=== PATIENT | female | born 1985 | race Two or more races ===

== ENCOUNTER 2017-11-30 15:55 | Inpatient (IN) | payer MEDICARE, OTHER ==
[~2017-11-30] VITALS: Ht 160 cm; Wt 47.6 kg
--- NOTE | 2017-11-30 16:22 | NUR ---
PT ASSISTED FROM WR TO ED BED 11 NOW. PT WAS [facility] FROM [facility] FOR NON TRAUMATIC BILATERAL FOOT PAIN R>L X 2 DAYS. WORSE WHEN TOUCHED OR WITH MOVEMENTS. ASSISTED TO BED. WILL CONT TO MONITOR
[2017-11-30] MEDS ORDERED: ONDANSETRON HCL/PF 4 MG/2 ML VIAL IV ONE (17:00)
[2017-11-30] MEDS ORDERED: CEFTRIAXONE 1 G VIAL IM ONE (17:00)
[2017-11-30] MEDS ORDERED: MORPHINE SULFATE INJ 4 MG/ML DISP.SYRIN IV ONE (17:00)
[2017-11-30] MEDS ORDERED: ONDANSETRON HCL/PF 4 MG/2 ML VIAL ONE (17:21)
[2017-11-30] MEDS ORDERED: MORPHINE SULFATE INJ 4 MG/ML DISP.SYRIN ONE (17:21)
--- NOTE | 2017-11-30 17:30 | NUR ---
MEDICATED FOR PAIN PER OLIVIA, NATURAL RESOURCES SPECIALIST ORDER, PT WEI WELL.
[2017-11-30 17:31] LABS: BASOPHILS # (AUTO) 0.6 /CMM (0.0-0.2); BASOPHILS % (AUTO) 4.9 % (0.0-2.0); CALCIUM, SERUM 9.7 mg/dL (8.5-10.1); CREATININE 3.8 mg/dL (0.6-1.3); EOSINOPHILS % (AUTO) 1.1 % (0.0-6.0); HEMATOCRIT 39 % (33-45); HEMOGLOBIN 12.7 g/dL (11.5-14.8); LYMPHOCYTES # (AUTO) 0.6 /CMM (0.8-4.8); LYMPHOCYTES % (AUTO) 4.8 % (20.0-44.0); MEAN CORPUSCULAR HEMOGLOBIN 31 PG (26.0-33.0); MEAN CORPUSCULAR HGB CONC 33 g/dl (31.0-36.0); MEAN CORPUSCULAR VOLUME 95 fL (82-100); MONOCYTES % (AUTO) 8.5 % (2.0-12.0); NEUTROPHILS # (AUTO) 9.9 /CMM (1.8-8.9); NEUTROPHILS % (AUTO) 80.7 % (43.0-81.0); PLATELET COUNT (AUTO) 113 /CMM (150-450); POTASSIUM 4.8 mmol/L (3.5-5.1); RED BLOOD CELL COUNT(AUTO) 4.09 MIL/uL (4.0-5.2); WHITE BLOOD COUNT (AUTO) 12.2 K/uL (4.3-11.0)
[2017-11-30 17:43] LABS: ALBUMIN 3.8 g/dL (3.4-5.0); BILIRUBIN,DIRECT 0.2 mg/dL (0.0-0.2); BILIRUBIN,TOTAL 1.2 mg/dL (0.2-1.0); TOTAL PROTEIN, SERUM 7.4 g/dL (6.4-8.2)
[2017-11-30] MEDS ORDERED: ACETAMINOPHEN 325 MG TABLET PO ONE (18:30)
--- NOTE | 2017-11-30 18:52 | NUR ---
CALLED [facility] OBI WOLFE
[2017-11-30] MEDS ORDERED: ACETAMINOPHEN ES 500 MG TABLET ONE (19:10)
[2017-11-30] MEDS ORDERED: SEVE800T8 PO (19:14)
[2017-11-30] MEDS ORDERED: NIFE30TA2 PO (19:14)
[2017-11-30] MEDS ORDERED: LABE300T2 PO (19:14)
[2017-11-30] MEDS ORDERED: CLON0.2T PO (19:14)
[2017-11-30] MEDS ORDERED: CEFTRIAXONE 1 G in IV D5W 50 ML IV ONE (19:30)
[2017-11-30] MEDS ORDERED: IV NS 0.9% 1,000 ML IV PRN (19:48)
[2017-11-30] MEDS ORDERED: MAG HYDROX/AL HYDROX/SIMETH 30 ML UDC PO PRN (20:00)
[2017-11-30] MEDS ORDERED: Z GUARD REMEDY 2 OZ OINT TP PRN (20:00)
[2017-11-30] MEDS ORDERED: MAGNESIUM HYDROXIDE 30 ML UDC PO PRN (20:00)
[2017-11-30] MEDS ORDERED: ONDANSETRON HCL/PF - ER 4 MG/2 ML VIAL IV ONE (20:30)
[2017-11-30] MEDS ORDERED: CLINDAMYCIN IV RTU IN D5W 600 MG/50 ML PIGGYBACK IV SCH (21:00)
[2017-11-30] MEDS ORDERED: CLINDAMYCIN IV RTU IN D5W 900 MG/50 ML PIGGYBACK IV SCH (21:00)
[2017-11-30 21:30] VITALS: BP 142/94
--- NOTE | 2017-11-30 21:30 | NUR ---
TERESA RN NOTE PT RECEIVED AWAKE AND ALERT X4. ON ROOM AIR AND SATURATING WELL. BREATHING EVEN AND UNLABORED. NOTED WITH SLIGHT WEAKNESS AND PAIN TO BILATERAL LEGS. PT UNABLE TO AMBULATE TO BED AND TRANSFERRED SAFELY VIA GURNEY TO BED. NO NAUSEA OR VOMIT NOTED AT THIS TIME. LEFT FOREARM #20 CLEAN, DRY AND FLUSHING WELL. CAROLYN FISTULA NOTED WITH POSITIVE THRILL AND BRUIT PRESENT. NO BP OR BLOOD DRAW TO RIGHT ARM PRECAUTIONS. RCW PERMACATH CLEAN AND IN PLACE. CALL LIGHT WITHIN REACH. WILL MONITOR.
[2017-12-01] VITALS: BP 140/99
[2017-12-01] MEDS ORDERED: CLINDAMYCIN 900 MG/6 ML VIAL ONE (00:05)
[2017-12-01] MEDS: [UNRECOGNIZED DRUG - OTHER] IV SCH ×8 (00:08→20:37)
[2017-12-01] MEDS: D5W IV SCH ×8 (00:08→20:37)
[2017-12-01 04:00] VITALS: BP 136/94
[2017-12-01] MEDS ORDERED: CEFAZOLIN 1 GM ONE (04:54)
[2017-12-01] MEDS ORDERED: CEFAZOLIN 1 GM in IV NS 0.9% 50 ML IV SCH (05:00)
[2017-12-01] MEDS: CEFAZOLIN 1 GM in IV D5W 50 ML IV SCH ×3 (05:39→20:55)
[2017-12-01 06:18] LABS: BASOPHILS % (AUTO) 0.4 % (0.0-2.0); EOSINOPHILS % (AUTO) 3.6 % (0.0-6.0); HEMATOCRIT 39 % (33-45); HEMOGLOBIN 12.2 g/dL (11.5-14.8); LYMPHOCYTES # (AUTO) 0.5 /CMM (0.8-4.8); LYMPHOCYTES % (AUTO) 7.1 % (20.0-44.0); MEAN CORPUSCULAR HEMOGLOBIN 31 PG (26.0-33.0); MEAN CORPUSCULAR HGB CONC 32 g/dl (31.0-36.0); MEAN CORPUSCULAR VOLUME 99 fL (82-100); MONOCYTES % (AUTO) 13.9 % (2.0-12.0); NEUTROPHILS # (AUTO) 5.2 /CMM (1.8-8.9); PLATELET COUNT (AUTO) 122 /CMM (150-450); RDW COEFFICIENT OF VARIATION 19.4 (11.5-15.0); WHITE BLOOD COUNT (AUTO) 6.9 K/uL (4.3-11.0)
[2017-12-01 06:48] LABS: CALCIUM, SERUM 8.7 mg/dL (8.5-10.1); CREATININE 5.2 mg/dL (0.6-1.3); MAGNESIUM 2.5 mg/dL (1.8-2.4); POTASSIUM 5.4 mmol/L (3.5-5.1)
[2017-12-01 06:56] LABS: PHOSPHORUS 9.2 mg/dL (2.5-4.9)
--- NOTE | 2017-12-01 07:10 | NUR ---
TERESA RN OPENING NOTE RECEIVED PATIENT THIS MORNING SITTING IN BED, NO COMPLAINT OF NAUSEA OR PAIN, NO RESPIRATORY DISTRESS NOTED, ON ROOM AIR, SOME WEAKNESS NOTED. ADVISED PATIENT TO NOT AMBULATE ON HER OWN AND WAIT FOR PT EVALUATION LATER TODAY. ALERT AND ORIENTED, ABLE TO MAKE NEEDS KNOWN. SINUS RHYTHM ON HUNTING GUIDE, HEART RATE IN THE 70S. LEFT FOREARM IV SITE INTACT AND INFUSING NORMAL SALINE AT 75ML/HR. CALL LIGHT WITHIN REACH, WILL CONTINUE TO MONITOR.
[2017-12-01 07:17] LABS: THYROID STIMULATING HORMONE 4.176 uIU/mL (0.358-3.74)
[2017-12-01 08:00] VITALS: BP 150/98
[2017-12-01] MEDS: CLONIDINE HCL 0.1 MG TABLET PO SCH (08:48)
[2017-12-01] MEDS: NIFEdipine XL (30MG) 30 MG TAB PO SCH (08:48)
[2017-12-01] MEDS: PANTOPRAZOLE 40 MG TABLET.DR PO SCH (08:48)
[2017-12-01] MEDS: LABETALOL HCL (100MG) 100 MG TABLET PO SCH (08:59)
[2017-12-01] MEDS ORDERED: SEVELAMER CARBONATE 800 MG TABLET PO SCH (09:00)
[2017-12-01] MEDS ORDERED: LABETALOL HCL 300 MG TABLET PO SCH (09:00)
--- NOTE | 2017-12-01 10:57 | NUR ---
Social service consult requested by SHERINE Suarez for homelessness. Pt. is a 32 year old female who was admitted to [facility] for Bilateral Lower extremities cellulitis. SW met with pt. bedside. Pt. is alert and oriented x 4. Pt. was cooperative with SW during the assessment. Pt. states she is homeless as of today. 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 was kicked out of the house by the [employer] administrator. Pt. is on dialysis and goes to [facility] in [place] on Wed, , and Wednesday. Pt. denies drug and alcohol use. Pt. receives $912/ month in SSDI and would like to find an independent living where she can pay $600 per month. SW and case management rn to assist pt. in finding placement. Pt's emergency contact is her brother Gucci Felix . No other social service needs are requested at this time. SW is available, if needed.
[2017-12-01 12:00] VITALS: BP 150/101
[2017-12-01] MEDS: SEVELAMER CARBONATE 800 MG TABLET PO SCH ×2 (13:03→17:16)
[2017-12-01 16:00] VITALS: BP 150/93
[2017-12-01] MEDS: LACTOBACILLUS RHAMNOSUS GG 1 EACH CAP.SPRINK PO SCH (17:14)
--- NOTE | 2017-12-01 18:56 | NUR ---
DRILL PRESS SET UP OPERATOR CLOSING NOTE PATIENT SITTING IN CHAIR AT THIS TIME IN STABLE CONDITION. A&OX4, ABLE TO MAKE NEEDS KNOWN. NO APPARENT DISTRESS NOTED. OFFERED TO APPLY ORDERED OXYGEN, BUT PATIENT REFUSING, SAYING "I DON'T NEED OXYGEN." IV SITE ON LEFT FOREARM INTACT. DISCONTINUED NORMAL SALINE ORDERED BY MD. RIGHT CHEST WALL PERMACATH INTACT. PATIENT REFUSING TO USE BEDPAN OR BEDSIDE COMMODE, INSISTING SHE WANTS TO BE ABLE TO USE THE BATHROOM AND REQUESTING FOR A WALKER. WALKER PROVIDED TO PATIENT AND ENCOURAGED TO USE CALL LIGHT TO ASK FOR ASSISTANCE IF SHE NEEDS TO USE THE BATHROOM. BED LOW AND LOCKED, CALL LIGHT WITHIN REACH, WILL ENDORSE TO ONCOMING NURSE.
[2017-12-01 20:00] VITALS: BP 130/86
[2017-12-01] MEDS: HYDROCODONE/APAP 5/325MG 1 EACH TABLET PO PRN (20:37)
[2017-12-01] MEDS: ACETAMINOPHEN 325 MG TABLET PO PRN (23:16)
[2017-12-02] MEDS: ONDANSETRON HCL/PF 4 MG/2 ML VIAL IVP PRN (03:43)
[2017-12-02 04:00] VITALS: BP_SYST 145; BP_DIAS 94; BP_DIAS 97
[2017-12-02] MEDS: D5W IV SCH ×6 (04:40→22:17)
[2017-12-02] MEDS: [UNRECOGNIZED DRUG - OTHER] IV SCH ×6 (04:40→22:17)
[2017-12-02] MEDS: CEFAZOLIN 1 GM in IV D5W 50 ML IV SCH ×3 (05:17→22:17)
[2017-12-02 07:18] LABS: BASOPHILS % (AUTO) 0.7 % (0.0-2.0); EOSINOPHILS % (AUTO) 6.6 % (0.0-6.0); HEMATOCRIT 35 % (33-45); HEMOGLOBIN 11.4 g/dL (11.5-14.8); LYMPHOCYTES # (AUTO) 0.6 /CMM (0.8-4.8); LYMPHOCYTES % (AUTO) 12.2 % (20.0-44.0); MEAN CORPUSCULAR HEMOGLOBIN 32 PG (26.0-33.0); MEAN CORPUSCULAR HGB CONC 33 g/dl (31.0-36.0); MEAN CORPUSCULAR VOLUME 97 fL (82-100); MONOCYTES # (AUTO) 0.8 /CMM (0.1-1.30); MONOCYTES % (AUTO) 15.8 % (2.0-12.0); NEUTROPHILS # (AUTO) 3.2 /CMM (1.8-8.9); NEUTROPHILS % (AUTO) 64.7 % (43.0-81.0); PLATELET COUNT (AUTO) 130 /CMM (150-450); RDW COEFFICIENT OF VARIATION 19.2 (11.5-15.0); RED BLOOD CELL COUNT(AUTO) 3.59 MIL/uL (4.0-5.2)
[2017-12-02 07:29] LABS: CALCIUM, SERUM 8.9 mg/dL (8.5-10.1); MAGNESIUM 2.7 mg/dL (1.8-2.4); POTASSIUM 5.2 mmol/L (3.5-5.1)
--- NOTE | 2017-12-02 07:30 | NUR ---
MS RN OPENING NOTE RECEIVED PATIENT IN BED, ALERT ORIENTED X4, ON ROOM AIR TOLERATING WELL. IN NO APPARENT DISTRESS OR DISCOMFORT AT THIS TIME, RESPIRATIONS EVEN AND UNLABORED. ABLE TO COMMUNICATE NEEDS. PATIENT WITH EDEMA ON BILATERAL LOWER EXTREMITIES. LEFT FOREARM 20G IVC, PATENT AND INTACT. RIGHT CW PERMACATH FOR HD. RIGHT ARM FISTULA. NO BP ON RIGHT ARM. PATIENT KEPT CLEAN AND COMFORTABLE. ALL NEEDS ATTENDED. SAFETY MEASURES IN PLACE, BED IN LOW LOCKED POSITION, SIDE RAILS UP X2, CALL LIGHT WITHIN EASY REACH. WILL CONTINUE TO MONITOR.
[2017-12-02 07:45] LABS: CREATININE 7.9 mg/dL (0.6-1.3)
[2017-12-02 07:46] LABS: PHOSPHORUS 10.9 mg/dL (2.5-4.9)
[2017-12-02 08:00] VITALS: BP 151/102
[2017-12-02] MEDS: LABETALOL HCL (100MG) 100 MG TABLET PO SCH (09:00)
[2017-12-02] MEDS: LACTOBACILLUS RHAMNOSUS GG 1 EACH CAP.SPRINK PO SCH ×2 (09:00→17:45)
[2017-12-02] MEDS: NIFEdipine XL (30MG) 30 MG TAB PO SCH (09:00)
[2017-12-02] MEDS: SEVELAMER CARBONATE 800 MG TABLET PO SCH ×3 (09:00→17:45)
--- NOTE | 2017-12-02 09:00 | NUR ---
HELD PATIENT TWO OUT OF THREE BP MEDS DUE TO SCHEDULED DIALYSIS. WILL FOLLOW UP AND CONTINUE TO MONITOR
[2017-12-02] MEDS: PANTOPRAZOLE 40 MG TABLET.DR PO SCH (09:01)
[2017-12-02] MEDS: CLONIDINE HCL 0.1 MG TABLET PO SCH (09:01)
--- NOTE | 2017-12-02 15:00 | NUR ---
STILL WAITING FOR DIALYSIS. SOON, ELECTRICAL ACCESSORIES II ASSEMBLER, SPOKE TO DIALYSIS NURSE AND SHE NOTIFIED ME THAT PATIENT WILL BE DIALYZED SOON.
--- NOTE | 2017-12-02 16:40 | NUR ---
PATIENT'S BP IS ELEVATED TO 177/119. CALLED THE DIALYSIS NURSE TO FIND OUT WHAT TIME THE DIALYSIS IS GOING TO BE IN ORDER TO MANAGE PATIENT'S BP ADEQUATELY. WAS TOLD SHES GOING TO BE IN THE UNIT SHORTLY.
[2017-12-02] MEDS ORDERED: CLONIDINE HCL 0.1 MG TABLET PO ONE (18:30)
--- NOTE | 2017-12-02 19:07 | NUR ---
DIALYSIS NURSE CAME THEN LEFT FOR ANOTHER PATIENT, NOTIFIED DR. WOLFE TO OBTEIN PRN BP MEDICATION IT IS UNCLEAR WHEN THE PATIENT WILL BE DIALYZED. RECEIVED VERBAL ORDER FOR CLONIDINE 0.1MG PO X1 ONLY. ORDER READ BACK AND VARIFIED. WILL ADMINISTER SOON AVAILABLE AND CONTINUE TO MONITOR.
--- NOTE | 2017-12-02 19:09 | NUR ---
MS RN CLOSING NOTE PATIENT IN BED, ALERT ORIENTED X4, ON ROOM AIR TOLERATING WELL. IN NO APPARENT DISTRESS OR DISCOMFORT AT THIS TIME, RESPIRATIONS EVEN AND UNLABORED. ABLE TO COMMUNICATE NEEDS. PATIENT WITH EDEMA ON BILATERAL LOWER EXTREMITIES. LEFT FOREARM 20G IVC, PATENT AND INTACT. RIGHT CW PERMACATH FOR HD. RIGHT ARM FISTULA. NO BP ON RIGHT ARM. PATIENT KEPT CLEAN AND COMFORTABLE. ALL NEEDS ATTENDED. SAFETY MEASURES IN PLACE, BED IN LOW LOCKED POSITION, SIDE RAILS UP X2, CALL LIGHT WITHIN EASY REACH.VWILL ENDORSE TO PM NURSE FOR JACINTA.
[2017-12-02 20:00] VITALS: BP 180/115
--- NOTE | 2017-12-02 20:00 | NUR ---
RN NOTES PT REFUSED VS.
--- NOTE | 2017-12-02 20:00 | NUR ---
RN INITIAL NOTE RECEIVED PATIENT IN BED, ALERT ORIENTED X4, ON ROOM AIR TOLERATING WELL. IN NO APPARENT DISTRESS OR DISCOMFORT AT THIS TIME, RESPIRATIONS EVEN AND UNLABORED. ABLE TO COMMUNICATE NEEDS. PATIENT WITH EDEMA ON BILATERAL LOWER EXTREMITIES. LEFT FOREARM 20G IVC, PATENT AND INTACT. RIGHT CW PERMACATH FOR HD. RIGHT ARM FISTULA. PATIENT KEPT CLEAN AND COMFORTABLE. ALL NEEDS ATTENDED. SAFETY MEASURES IN PLACE, BED IN LOW LOCKED POSITION, SIDE RAILS UP X2, CALL LIGHT WITHIN EASY REACH. WILL CONTINUE TO MONITOR.
--- NOTE | 2017-12-02 21:30 | NUR ---
RN NOTES PT B/P WAS ELEVATED DURING HD, B/P WAS RANGE FROM 191/121 - 200/120 REPORTED BY THE HD NURSE. DR PEREZ WAS CALLED, NO B/P MEDS WAS ORDERED AT THIS TIME. CHARGE NURSE RICH SPOKE TO DR. PEREZ RE PTS B/P. PER DR PEREZ NO B/P WAS TO BE TAKEN ON THE PT UNTIL 0800 AM.
--- NOTE | 2017-12-02 22:00 | NUR ---
RN NOTES PT RECEIVED HD TODAY.
[2017-12-03] MEDS: ACETAMINOPHEN 325 MG TABLET PO PRN ×2 (01:20→11:04)
--- NOTE | 2017-12-03 02:15 | NUR ---
RN NOTES PT COMPLAINED FOR NOSE BLEED, DR PEREZ WAS CALLED. MEDS WAS ORDERED.
[2017-12-03] MEDS ORDERED: NITROGLYCERIN PACKET 1 GM PACKET TOP SCH (02:30)
--- NOTE | 2017-12-03 04:55 | NUR ---
RN NOTES PT REFUSED VS
[2017-12-03] MEDS: CEFAZOLIN 1 GM in IV D5W 50 ML IV SCH ×2 (04:59→12:10)
[2017-12-03] MEDS: [UNRECOGNIZED DRUG - OTHER] IV SCH ×2 (05:01)
[2017-12-03] MEDS: D5W IV SCH ×2 (05:01)
[2017-12-03] MEDS: ONDANSETRON HCL/PF 4 MG/2 ML VIAL IVP PRN ×4 (05:07→18:54)
--- NOTE | 2017-12-03 06:31 | NUR ---
RN CLOSING NOTE PATIENT IN BED, ALERT ORIENTED X4, ON ROOM AIR TOLERATING WELL. IN NO APPARENT DISTRESS OR DISCOMFORT AT THIS TIME, RESPIRATIONS EVEN AND UNLABORED. ABLE TO COMMUNICATE NEEDS. PATIENT WITH EDEMA ON BILATERAL LOWER EXTREMITIES. LEFT FOREARM 20G IVC, PATENT AND INTACT. RIGHT CW PERMACATH FOR HD. RIGHT ARM FISTULA. NO BP ON RIGHT ARM. PATIENT KEPT CLEAN AND COMFORTABLE. ALL NEEDS ATTENDED. SAFETY MEASURES IN PLACE, BED IN LOW LOCKED POSITION, SIDE RAILS UP X2, CALL LIGHT WITHIN EASY REACH. WILL ENDORSE TO AM NURSE FOR JACINTA.
[2017-12-03 06:36] LABS: BASOPHILS % (AUTO) 0.6 % (0.0-2.0); EOSINOPHILS % (AUTO) 7.9 % (0.0-6.0); HEMATOCRIT 36 % (33-45); HEMOGLOBIN 11.7 g/dL (11.5-14.8); LYMPHOCYTES # (AUTO) 0.4 /CMM (0.8-4.8); LYMPHOCYTES % (AUTO) 11.4 % (20.0-44.0); MEAN CORPUSCULAR HEMOGLOBIN 32 PG (26.0-33.0); MEAN CORPUSCULAR HGB CONC 33 g/dl (31.0-36.0); MEAN CORPUSCULAR VOLUME 97 fL (82-100); MONOCYTES # (AUTO) 0.5 /CMM (0.1-1.30); MONOCYTES % (AUTO) 12.6 % (2.0-12.0); NEUTROPHILS # (AUTO) 2.4 /CMM (1.8-8.9); NEUTROPHILS % (AUTO) 67.5 % (43.0-81.0); PLATELET COUNT (AUTO) 121 /CMM (150-450); RDW COEFFICIENT OF VARIATION 18.9 (11.5-15.0); RED BLOOD CELL COUNT(AUTO) 3.69 MIL/uL (4.0-5.2); WHITE BLOOD COUNT (AUTO) 3.6 K/uL (4.3-11.0)
[2017-12-03 07:01] LABS: CALCIUM, SERUM 8.9 mg/dL (8.5-10.1); CREATININE 5.8 mg/dL (0.6-1.3); MAGNESIUM 2.4 mg/dL (1.8-2.4); PHOSPHORUS 7.9 mg/dL (2.5-4.9); POTASSIUM 5.1 mmol/L (3.5-5.1)
--- NOTE | 2017-12-03 07:15 | NUR ---
MS/RN INITIAL NOTES RECEIVED PT IN BED, A/OX3-4, TOLERATING ROOM AIR WELL, NO SOB NOTED. WITH INTACT LFA G20 SL, RCHEST WALL PERMACATH FOR HD, AND RARM FISTULA. NO BP/BLOOD DRAW SIGN ON RARM SIGN ON PT'S ROOM. HOB ELEVATED. SAFETY MEASURES IN PLACED. CALL LIGHT WITHIN REACH. WILL CONT TO MONITOR
[2017-12-03] MEDS: PANTOPRAZOLE 40 MG TABLET.DR PO SCH (07:56)
[2017-12-03] MEDS: SEVELAMER CARBONATE 800 MG TABLET PO SCH ×3 (07:56→17:37)
[2017-12-03 08:00] VITALS: BP 180/115
[2017-12-03] MEDS: LACTOBACILLUS RHAMNOSUS GG 1 EACH CAP.SPRINK PO SCH ×2 (08:58→17:37)
[2017-12-03] MEDS: LABETALOL HCL (100MG) 100 MG TABLET PO SCH (08:59)
[2017-12-03] MEDS: CLONIDINE HCL 0.1 MG TABLET PO SCH (08:59)
[2017-12-03] MEDS: NIFEdipine XL (30MG) 30 MG TAB PO SCH (08:59)
[2017-12-03] MEDS: NITROGLYCERIN 30 GM TUBE TP SCH ×2 (11:55→17:37)
[2017-12-03] MEDS: HYDROCODONE/APAP 5/325MG 1 EACH TABLET PO PRN (12:10)
[2017-12-03] MEDS ORDERED: ONDANSETRON HCL/PF 4 MG/2 ML VIAL IV STA (12:36)
--- NOTE | 2017-12-03 12:38 | NUR ---
RN NOTES PT HAD 1 MORE EPISODE OF VOMITING IN SMALL AMOUNT. SEEN BY DR ANA MD ORDER ZOFRAN 4MG IV X1 NOW. NOTIFIED MD THAT JUST GOT ZOFRAN, PER MD OK TO GIVE ONE MORE
[2017-12-03] MEDS ORDERED: CLINDAMYCIN HCL 150 MG CAPSULE PO SCH (13:00)
--- NOTE | 2017-12-03 13:20 | NUR ---
RN NOTES SEEN AND EXAMINED BY BOLT MAKER NILDA WOLFE. PT IS FOR D/C AFTER PSYCH CONSULT. INFORMED THAT PT STILL HAS VOMITED X3. PER BOLT MAKER, IF ZOFRAN INEFFECTIVE, GIVE REGLAN IV PRN. WILL CONT TO MONITOR
[2017-12-03] MEDS ORDERED: METOCLOPRAMIDE HCL 10 MG/2 ML VIAL IV PRN (13:30)
--- NOTE | 2017-12-03 14:00 | NUR ---
RN NOTES PT VOMITED X1 AGAIN IN SMALL AMOUNT, C/O HEADACHE, PT'S BP 171/85. PT REQUESTING TO HAVE MORPHINE IV. NOTIFIED PLANT PATHOLOGY TEACHER NILDA ABOUT PT'S REQUEST, PER PLANT PATHOLOGY TEACHER, "NO MORPHINE,NO DILAUDID, WE WILL SOLVE THE HIGH BP." PLANT PATHOLOGY TEACHER ORDERED CLONIDINE 0.1 MG PO X1 NOW. WILL ADMINISTER
[2017-12-03] MEDS ORDERED: CLONIDINE HCL 0.1 MG TABLET PO STA (14:26)
--- NOTE | 2017-12-03 15:00 | NUR ---
RN NOTES RECHECKED BP: 153/85. WILL CONT TO MONITOR, PT STILL C/O HEADACHE. PT REQUESTING FOR TYLENOL. NOTIFIED BOOK ILLUSTRATOR NILDA, PT REQUESTING FOR TYLENOL. INFORMED THAT PT JUST HAD TYENOL AROUND 11AM, TYLENOL IS Q6HR. PER BOOK ILLUSTRATOR NO TYLENOL FOR NOW, PT HAS TO WAIT AFTER 6HRS OF LAST DOSE. MAY GIVE MOTRIN 200 MG X1 PO NOW.
[2017-12-03] MEDS ORDERED: IBUPROFEN 200 MG TABLET PO STA (15:04)
[2017-12-03] MEDS ORDERED: QUETIAPINE FUMARATE 25 MG TABLET PO PRN (16:00)
--- NOTE | 2017-12-03 16:45 | NUR ---
RN NOTES REPORT GIVEN TO RYDER HUERTA FOR JACINTA
--- NOTE | 2017-12-03 17:00 | NUR ---
RN NOTES RECEIVED PATIENT A/OX3, SLEEPING, PATIENT DOES NOT WANT TO BE BOTHERED AT THIS TIME. NO DISTRESS NOTED. VITALS STABLE. NEEDS ATTENDED AND MET, CALL LIGHT WITHIN REACH WILL CONTINUE TO MONITOR.
[2017-12-03 17:37] VITALS: BP 147/98
--- NOTE | 2017-12-03 19:56 | NUR ---
DICTATING MACHINE MECHANIC NOTES RECEIVED REPORT FROM SAULO. PT HAS BEEN DISCHARGED TO [facility].ROOM 41B, REPORT WAS GIVEN TO JEANETTE RECEIVING RN. 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 IV REMOVED PRIOR TO DISCHARGE. PT VERBALIZED UNDERSTANDING OF ALL DISCHARGE TEACHING. ALL PERSONAL BELONGINGS WITH PT. PT LEFT [facility] AT 1945.
== END 2017-12-03 19:45 | DRG 602 ==
LOC: ER 15:56 → TELE-TD 20:22 → TELE1 12-01 11:29 → MEDSG1 12-01 19:59
PROVIDERS: ADMIT Registered Nurse; ATTEND Registered Nurse
PROC: 5A1D70Z Performance of Urinary Filtration, Intermittent, Less than 6 Hours Per Day (ICD-10-PCS; principal; 2017-12-02)
DX: L03.115 Cellulitis of right lower limb (principal); J15.9 Unspecified bacterial pneumonia; N18.6 End stage renal disease; E87.1 Hypo-osmolality and hyponatremia; I13.11 Hypertensive heart and chronic kidney disease without heart failure, with stage 5 chronic kidney disease, or end stage renal disease; Z94.0 Kidney transplant status; I16.1 Hypertensive emergency; L03.116 Cellulitis of left lower limb; Z59.0 Homelessness; E83.39 Other disorders of phosphorus metabolism; E87.5 Hyperkalemia; Z79.899 Other long term (current) drug therapy; F39 Unspecified mood [affective] disorder; Z99.2 Dependence on renal dialysis; E80.6 Other disorders of bilirubin metabolism; W57.XXXA Bitten or stung by nonvenomous insect and other nonvenomous arthropods, initial encounter; Y92.9 Unspecified place or not applicable; F43.20 Adjustment disorder, unspecified
CPT/HCPCS: 36415; 71045-TC; 80048-TC; 80061-TC; 80076-TC; 83605-TC; 83735-TC; 84100-TC; 84443-TC; 84703-TC; 85025-TC; 85652-TC; 87040-TC; 87081-TC; 93307-TC; 93970-TC; A4216; A4606; A6402; G0480; J0690; J0696; J2270; J2405; J2765; J3490; J7030; J7060; Z7610